=== PATIENT | female | born 1950 | race Native Hawaiian/Other Pacific Islander ===

== ENCOUNTER 2016-05-19 08:39 | Outpatient (CLI) | payer OTHER ==
[2016-05-19 10:03] LABS: SODIUM 138 mmol/L (136-145)
== END 2016-05-19 22:49 | disposition home or self-care (01) ==
LOC: RAD 08:39
DX: M81.0 Age-related osteoporosis without current pathological fracture (principal); E11.9 Type 2 diabetes mellitus without complications; E78.4 Other hyperlipidemia; Z79.899 Other long term (current) drug therapy; I10 Essential (primary) hypertension; Z51.81 Encounter for therapeutic drug level monitoring
CPT/HCPCS: 36415; 80048; 80061; 83036

== ENCOUNTER 2016-09-22 11:03 | Outpatient (CLI) | payer OTHER | END 2016-09-22 19:04 | disposition home or self-care (01) | LOC: MAMMO 11:03 → LABW 11:03 → MAMMO 19:04 | PROVIDERS: Physician Assistant Medical | DX: Z12.31 Encounter for screening mammogram for malignant neoplasm of breast (principal); E78.4 Other hyperlipidemia | CPT/HCPCS: 36415; 80061; 84460; G0202-TC ==

== ENCOUNTER 2016-12-13 08:05 | Outpatient (CLI) | payer OTHER ==
[2016-12-13 09:22] LABS: PLATELET COUNT 209 K/uL (152-353)
[2016-12-13 09:56] LABS: POTASSIUM 4.4 mmol/L (3.6-5.2)
== END 2016-12-13 19:01 | disposition home or self-care (01) ==
LOC: LABW 08:05
DX: Z01.818 Encounter for other preprocedural examination (principal); E78.4 Other hyperlipidemia; Z79.899 Other long term (current) drug therapy; Z51.81 Encounter for therapeutic drug level monitoring
CPT/HCPCS: 36415; 80048; 80061; 84460; 85027; 93005

== ENCOUNTER 2017-07-11 09:16 | Day surgery (SDC) | payer OTHER | END 2017-07-11 12:10 | disposition home or self-care (01) | LOC: OR 09:16 | PROC: 08RJ3JZ Replacement of Right Lens with Synthetic Substitute, Percutaneous Approach (ICD-10-PCS; principal; 2017-07-11) | DX: H25.811 Combined forms of age-related cataract, right eye (principal) | CPT/HCPCS: 66984; J0171; V2632 ==

== ENCOUNTER 2017-09-23 09:57 | Outpatient (CLI) | payer OTHER ==
[2017-09-23 10:56] LABS: POTASSIUM 4.3 mmol/L (3.6-5.2)
== END 2017-09-23 19:10 | disposition home or self-care (01) ==
LOC: LABW 09:57
DX: E78.4 Other hyperlipidemia (principal); I10 Essential (primary) hypertension
CPT/HCPCS: 36415; 80048; 80061; 84460

== ENCOUNTER 2017-09-27 08:23 | Outpatient (CLI) | payer OTHER | END 2017-09-27 19:01 | disposition home or self-care (01) | LOC: MAMMO 08:23 | DX: Z12.31 Encounter for screening mammogram for malignant neoplasm of breast (principal) ==

== ENCOUNTER 2018-12-18 13:42 | Outpatient (CLI) | payer OTHER ==
[2018-12-18 14:03] LABS: PLATELET COUNT 221 K/uL (152-353)
[2018-12-18 14:44] LABS: POTASSIUM 4.5 mmol/L (3.6-5.2)
== END 2018-12-18 19:40 | disposition home or self-care (01) ==
LOC: LAB 13:42
PROVIDERS: Nurse Practitioner Family
DX: Z00.00 Encounter for general adult medical examination without abnormal findings (principal); I10 Essential (primary) hypertension; K21.9 Gastro-esophageal reflux disease without esophagitis; Z79.899 Other long term (current) drug therapy; R53.83 Other fatigue; R53.81 Other malaise
CPT/HCPCS: 80053; 80061; 83036; 84439; 84443; 85027